=== PATIENT | male | born 1975 | race Caucasian/White ===

== ENCOUNTER → 2016-12-30 | Outpatient (REF) | payer MEDICAID, OTHER ==
[~2016-12-30] MED LIST: AMLO10TA PO; CIPR500T89 PO; LOSA100T37 PO; NORCOTAB PO; SPIR25TA2 PO
== END ==
LOC: M LAB REF 13:06
PROVIDERS: ATTEND Physician Assistant
DX: R50.9 Fever, unspecified (principal)

== ENCOUNTER 2017-02-20 22:26 | Emergency (ER) | payer MEDICAID, OTHER ==
[~2017-02-20] VITALS: Ht 185.4 cm; Wt 127.9 kg
[2017-02-20 22:41] VITALS: BP 155/91
[2017-02-20] MEDS ORDERED: BENAZEPRIL-HCTZ PO (22:45)
--- NOTE | 2017-02-21 08:13 | REP ---
Left knee five views : There is no fracture or dislocation. Mineralization and joint spaces are normal. There are no calcifications or foreign bodies. Impression: Negative left knee . Signed by Ayad Flores MD 02/21/2017 08:04 A
== END 2017-02-20 23:25 | disposition home or self-care (01) ==
LOC: M ED 23:20
DX: S83.92XA Sprain of unspecified site of left knee, initial encounter (principal); X50.9XXA Other and unspecified overexertion or strenuous movements or postures, initial encounter; Y92.019 Unspecified place in single-family (private) house as the place of occurrence of the external cause; Y93.89 Activity, other specified; Y99.8 Other external cause status; E66.9 Obesity, unspecified; Z79.899 Other long term (current) drug therapy; Z88.1 Allergy status to other antibiotic agents; F17.210 Nicotine dependence, cigarettes, uncomplicated

== ENCOUNTER 2017-08-06 13:40 | Emergency (ER) | payer MEDICAID, OTHER ==
[~2017-08-06] VITALS: Ht 185.4 cm; Wt 134.1 kg
[~2017-08-06 13:40] MED LIST changes: +BENAZEPRIL-HCTZ PO; +CIPR-249 PO; -CIPR500T89 PO; -LOSA100T37 PO; +LOSA100T5 PO
[2017-08-06] MEDS ORDERED: BENA20TA7 PO (14:07)
[2017-08-06 16:26] LABS: BASO # 0.1 K/mm3 (0.0-0.2); EOS # 0.2 K/mm3 (0.0-0.50); EOS % 2.2 % (0.0-3.0); LARGE UNSTAINED CELL # 0.2 K/mm3 (0.0-0.4); LARGE UNSTAINED CELL % 2.3 % (0.0-4.0); LYMPH # 3.2 K/mm3 (1.5-4.5); LYMPH % 28.6 % (24.0-44.0); MEAN CORPUSCULAR HEMOGLOBIN 29.9 pg (27.0-33.0); MEAN CORPUSCULAR HGB CONC 34.2 g/dl (32.0-36.5); MEAN CORPUSCULAR VOLUME 87.5 fl (80.0-96.0); MONO # 0.9 K/mm3 (0.0-0.8); MONO % 8.8 % (0.0-5.0); NEUTROPHILS # 5.8 K/mm3 (1.8-7.7); PLATELET COUNT, AUTOMATED 332 k/mm3 (150-450); RED CELL DISTRIBUTION WIDTH 12.6 % (11.5-14.5); WHITE BLOOD COUNT 10.2 K/mm3 (4.0-10.0)
[2017-08-06 16:56] LABS: ALBUMIN 4.3 GM/DL (3.2-5.2); ALBUMIN/GLOBULIN RATIO 1.05 (1.00-1.93); ALKALINE PHOSPHATASE 87 U/L (45-117); ALT/SGPT 54 U/L (12-78); ANION GAP 9 MEQ/L (8-16); AST/SGOT 27 U/L (15-37); BILIRUBIN,TOTAL 0.7 MG/DL (0.2-1.0); BLOOD UREA NITROGEN 11 MG/DL (7-18); CARBON DIOXIDE LEVEL 26 MEQ/L (21-32); CHLORIDE LEVEL 106 MEQ/L (98-107); CREATININE FOR GFR 0.83 MG/DL (0.70-1.30); GLOMERULAR FILTRATION RATE > 60.0 (>60); GLUCOSE, FASTING 85 MG/DL (70-105); POTASSIUM SERUM 3.9 MEQ/L (3.5-5.1); SODIUM LEVEL 141 MEQ/L (136-145); TOTAL PROTEIN 8.4 GM/DL (6.4-8.2)
[2017-08-06] MEDS ORDERED: ZOFR4TAB3 PO (17:44)
[2017-08-06] MEDS ORDERED: MOBI4TAB PO (17:44)
[2017-08-06 17:55] VITALS: BP 168/110
--- NOTE | 2017-08-07 06:09 | REP ---
CT ABDOMEN AND PELVIS WITHOUT ORAL OR IV CONTRAST: CT abdomen and pelvis performed without IV contrast. Sagittal and coronal reconstruction images are performed. The visualized lung bases are clear. The liver, spleen, adrenals, pancreas and kidneys are grossly unremarkable. There is no renal or ureteral calculus and no hydroureteronephrosis. There is no abdominal aortic aneurysm with mild scattered atherosclerotic calcification. There is no adenopathy. There is no free air or free fluid. There is no bowel wall thickening. No pelvic mass is seen. Urinary bladder is grossly unremarkable. IMPRESSION: Negative noncontrast CT abdomen and pelvis. Signed by Ayad Gilman MD 08/07/2017 09:41 A
== END 2017-08-06 17:58 | disposition home or self-care (01) ==
LOC: M ED 13:40
DX: R10.9 Unspecified abdominal pain (principal); I10 Essential (primary) hypertension; F17.200 Nicotine dependence, unspecified, uncomplicated; Z79.899 Other long term (current) drug therapy; Z88.1 Allergy status to other antibiotic agents

== ENCOUNTER → 2017-11-29 | Outpatient (CLI) | payer OTHER | LOC: M ADAMS 18:29 | DX: M25.562 Pain in left knee (principal) | CPT/HCPCS: 73564 ==

== ENCOUNTER 2018-01-10 11:04 | Emergency (ER) | payer OTHER ==
[2018-01-10 13:54] LABS: KETONE, URINE AUTO RFX NEGATIVE (NEGATIVE); LEUKOCYTE ESTERASE UR AUTO RFX NEGATIVE (NEGATIVE); MUCUS, URINE RFX SMALL (NEGATIVE); NITRITE, URINE AUTO RFX NEGATIVE (NEGATIVE); RBC, URINE AUTO RFX 1 /HPF (0-3); SPECIFIC GRAVITY UR AUTO RFX 1.013 (1.002-1.035); SQUAM EPITHELIAL CELL UR AURFX 1 /HPF (0-6); WBC, URINE AUTO RFX 0 /HPF (0-3)
[2018-01-10 14:17] LABS: INFLUENZA A AMPLIFICATION NEGATIVE (NEGATIVE); INFLUENZA B AMPLIFICATION NEGATIVE (NEGATIVE)
[2018-01-14 08:42] LABS: BEDSIDE GLUCOSE 131 MG/DL (70-105)
== END 2018-01-10 14:47 | disposition home or self-care (01) ==
LOC: M ED 11:04
DX: B34.9 Viral infection, unspecified (principal); R53.83 Other fatigue; I10 Essential (primary) hypertension; E66.9 Obesity, unspecified; F17.200 Nicotine dependence, unspecified, uncomplicated; Z79.899 Other long term (current) drug therapy; Z88.8 Allergy status to other drugs, medicaments and biological substances
CPT/HCPCS: 71046

== ENCOUNTER 2018-02-05 23:32 | Emergency (ER) | payer OTHER ==
[2018-02-06] MEDS ORDERED: INDOMETHACIN 25 MG CAP PO (01:30)
== END 2018-02-06 01:45 | disposition home or self-care (01) ==
LOC: M ED 23:32
DX: M65.272 Calcific tendinitis, left ankle and foot (principal); F17.200 Nicotine dependence, unspecified, uncomplicated; I10 Essential (primary) hypertension; Z79.899 Other long term (current) drug therapy; Z88.8 Allergy status to other drugs, medicaments and biological substances
CPT/HCPCS: 73610

== ENCOUNTER → 2018-03-31 | Outpatient (REF) | payer OTHER ==
[2018-04-01 11:37] LABS: ALBUMIN/GLOBULIN RATIO 0.98 (1.00-1.93); ALKALINE PHOSPHATASE 83 U/L (45-117); ALT/SGPT 42 U/L (12-78); ANION GAP 8 MEQ/L (8-16); AST/SGOT 25 U/L (7-37); BILIRUBIN,TOTAL 0.6 MG/DL (0.2-1.0); BLOOD UREA NITROGEN 11 MG/DL (7-18); CALCIUM LEVEL 8.9 MG/DL (8.5-10.1); CARBON DIOXIDE LEVEL 25 MEQ/L (21-32); CHLORIDE LEVEL 107 MEQ/L (98-107); CHOLESTEROL LEVEL 240 MG/DL (<200); CHOLESTEROL RISK RATIO 7.272 (<5); CREATININE FOR GFR 0.95 MG/DL (0.70-1.30); GLOMERULAR FILTRATION RATE > 60.0 (>60); GLUCOSE, FASTING 105 MG/DL (70-100); HDL CHOLESTEROL 33 MG/DL (>40); NON-HDL-C 207 MG/DL; POTASSIUM SERUM 4.1 MEQ/L (3.5-5.1); SODIUM LEVEL 140 MEQ/L (136-145); TOTAL PROTEIN 8.1 GM/DL (6.4-8.2); TRIGLYCERIDES LEVEL 692 MG/DL (<150)
== END ==
LOC: M SFHCCLAY 14:49
DX: I10 Essential (primary) hypertension (principal); E78.2 Mixed hyperlipidemia

== ENCOUNTER 2018-05-07 21:22 | Emergency (ER) | payer OTHER | END 2018-05-07 22:43 | disposition home or self-care (01) | LOC: M ED 21:22 | DX: S63.501A Unspecified sprain of right wrist, initial encounter (principal); X58.XXXA Exposure to other specified factors, initial encounter; Y92.89 Other specified places as the place of occurrence of the external cause; I10 Essential (primary) hypertension; Z88.1 Allergy status to other antibiotic agents; Z79.899 Other long term (current) drug therapy | CPT/HCPCS: 73110 ==

== ENCOUNTER → 2018-08-28 | Outpatient (REF) | payer OTHER ==
[2018-08-28 16:45] LABS: BASO # 0.1 10^3/uL (0.0-0.2); BASO % 0.9 % (0.0-1.0); EOS # 0.3 10^3/uL (0.0-0.50); EOS % 2.9 % (0.0-3.0); HEMATOCRIT 47.4 % (42.0-52.0); HEMOGLOBIN 16.1 g/dl (13.5-17.5); IMMATURE GRANULOCYTE % 0.3 % (0-3.0); LYMPH # 3.1 10^3/uL (1.5-4.5); LYMPH % 34.2 % (24.0-44.0); MEAN CORPUSCULAR VOLUME 88.3 fl (80.0-96.0); MONO # 1.1 10^3/uL (0.0-0.8); NEUTROPHILS # 4.5 10^3/uL (1.8-7.7); NEUTROPHILS % 49.7 % (36.0-66.0); PLATELET COUNT, AUTOMATED 335 10^3/uL (150-450); RED BLOOD COUNT 5.37 10^6/uL (4.30-6.10); RED CELL DISTRIBUTION WIDTH 12.4 % (11.5-14.5); WHITE BLOOD COUNT 9.1 10^3/uL (4.0-10.0)
[2018-08-28 17:03] LABS: ALBUMIN 4.4 GM/DL (3.2-5.2); ALBUMIN/GLOBULIN RATIO 1.33 (1.00-1.93); ALKALINE PHOSPHATASE 69 U/L (45-117); ALT/SGPT 40 U/L (12-78); ANION GAP 9 MEQ/L (8-16); AST/SGOT 29 U/L (7-37); BILIRUBIN,TOTAL 0.6 MG/DL (0.2-1.0); BLOOD UREA NITROGEN 13 MG/DL (7-18); CALCIUM LEVEL 9.8 MG/DL (8.5-10.1); CARBON DIOXIDE LEVEL 27 MEQ/L (21-32); CHLORIDE LEVEL 106 MEQ/L (98-107); CHOLESTEROL LEVEL 141 MG/DL (<200); CHOLESTEROL RISK RATIO 2.711 (<5); CREATININE FOR GFR 0.95 MG/DL (0.70-1.30); GLOMERULAR FILTRATION RATE > 60.0 (>60); GLUCOSE, FASTING 78 MG/DL (70-100); HDL CHOLESTEROL 52 MG/DL (>40); LDL CHOLESTEROL 69 MG/DL (<100); NON-HDL-C 89 MG/DL; POTASSIUM SERUM 4.2 MEQ/L (3.5-5.1); SODIUM LEVEL 142 MEQ/L (136-145); TOTAL PROTEIN 7.7 GM/DL (6.4-8.2); TRIGLYCERIDES LEVEL 98 MG/DL (<150)
== END ==
LOC: M SFHCCLAY 10:47
DX: I10 Essential (primary) hypertension (principal); E78.2 Mixed hyperlipidemia
CPT/HCPCS: 80053

== ENCOUNTER 2019-03-09 11:44 | Emergency (ER) | payer OTHER ==
[~2019-03-09] VITALS: Ht 188 cm; Wt 129.6 kg
[~2019-03-09 11:44] MED LIST changes: +BENA10TA6 PO; +BENA20TA7 PO; +HYDR-3715 PO; +INDO50CA11 PO; +MOBI15TA PO; +MOBI4TAB PO; -NORCOTAB PO; +SPIR-10 PO; -SPIR25TA2 PO; +ZOFR4TAB14 PO
[2019-03-09] MEDS ORDERED: AMLO10TA5 (11:56)
[2019-03-09] MEDS ORDERED: ATOR40TA75 (11:56)
[2019-03-09 13:20] LABS: BASO # 0.1 10^3/uL (0.0-0.2); BASO % 0.9 % (0.0-1.0); EOS # 0.2 10^3/uL (0.0-0.50); EOS % 2.1 % (0.0-3.0); HEMATOCRIT 51.2 % (42.0-52.0); HEMOGLOBIN 17.7 g/dl (13.5-17.5); LYMPH # 2.5 10^3/uL (1.5-4.5); LYMPH % 25.9 % (24.0-44.0); MEAN CORPUSCULAR HEMOGLOBIN 30.5 pg (27.0-33.0); MEAN CORPUSCULAR HGB CONC 34.6 g/dl (32.0-36.5); MEAN CORPUSCULAR VOLUME 88.3 fl (80.0-96.0); MONO # 0.9 10^3/uL (0.0-0.8); MONO % 9.8 % (0.0-5.0); NEUTROPHILS # 5.9 10^3/uL (1.8-7.7); PLATELET COUNT, AUTOMATED 322 10^3/uL (150-450); WHITE BLOOD COUNT 9.6 10^3/uL (4.0-10.0)
[2019-03-09 13:51] LABS: BLOOD UREA NITROGEN 9 MG/DL (7-18); C REACTIVE PROTEIN QUANTITATIV < 0.30 MG/DL (0.00-0.30); CALCIUM LEVEL 9.5 MG/DL (8.5-10.1); CARBON DIOXIDE LEVEL 25 MEQ/L (21-32); CHLORIDE LEVEL 104 MEQ/L (98-107); CREATININE FOR GFR 0.88 MG/DL (0.70-1.30); GLOMERULAR FILTRATION RATE > 60.0 (>60); GLUCOSE, FASTING 93 MG/DL (70-100); POTASSIUM SERUM 3.8 MEQ/L (3.5-5.1); SODIUM LEVEL 137 MEQ/L (136-145); URIC ACID 3.7 MG/DL (3.5-7.2)
--- NOTE | 2019-03-09 14:02 | REP ---
Left upper extremity duplex Doppler venous ultrasound. Real time compression and duplex Doppler evaluation of the left upper extremity deep venous system is performed. The left subclavian, jugular, axillary, brachial, basilic and cephalic veins are fully compressible where accessible with transducer pressure, and demonstrate no intraluminal thrombus and normal venous waveforms. There is no evidence of deep venous thrombosis. Impression: No evidence of deep venous thrombosis of the left upper extremity deep vein system. Electronically Signed by Ayad Gilman MD 03/09/2019 01:53 P
[2019-03-09] MEDS ORDERED: NAPR-837 PO (14:55)
[2019-03-09 15:02] VITALS: BP 141/88
[2019-03-09 21:50] LABS: ERYTHROCYTE SEDIMENTATION RATE 1 mm/hr (0-15)
== END 2019-03-09 15:03 | disposition home or self-care (01) ==
LOC: M ED 11:44
DX: M79.89 Other specified soft tissue disorders (principal); J45.909 Unspecified asthma, uncomplicated; F17.200 Nicotine dependence, unspecified, uncomplicated; Z88.1 Allergy status to other antibiotic agents; Z79.899 Other long term (current) drug therapy

== ENCOUNTER 2019-03-30 10:40 | Emergency (ER) | payer OTHER ==
[~2019-03-30] VITALS: Ht 188 cm; Wt 127.3 kg
[~2019-03-30 10:40] MED LIST changes: +AMLO10TA5; +ATOR40TA75; +NAPR-837 PO
[2019-03-30] MEDS ORDERED: ASPIRIN 81 MG CHEW TABLET PO ONE (11:00)
[2019-03-30 11:05] LABS: BASO # 0.1 10^3/uL (0.0-0.2); BASO % 0.8 % (0.0-1.0); EOS # 0.2 10^3/uL (0.0-0.50); HEMATOCRIT 49.6 % (42.0-52.0); HEMOGLOBIN 16.9 g/dl (13.5-17.5); MEAN CORPUSCULAR HEMOGLOBIN 30.5 pg (27.0-33.0); MEAN CORPUSCULAR HGB CONC 34.1 g/dl (32.0-36.5); MEAN CORPUSCULAR VOLUME 89.4 fl (80.0-96.0); MONO % 9.6 % (0.0-5.0); NEUTROPHILS % 58.2 % (36.0-66.0); PLATELET COUNT, AUTOMATED 327 10^3/uL (150-450); RED BLOOD COUNT 5.55 10^6/uL (4.30-6.10); WHITE BLOOD COUNT 10.4 10^3/uL (4.0-10.0)
[2019-03-30 11:29] LABS: BLOOD UREA NITROGEN 10 MG/DL (7-18); CALCIUM LEVEL 9.6 MG/DL (8.5-10.1); CARBON DIOXIDE LEVEL 29 MEQ/L (21-32); CHLORIDE LEVEL 104 MEQ/L (98-107); CPK CREATINE PHOSPHOKINASE 477 U/L (39-308); CREATININE FOR GFR 1.01 MG/DL (0.70-1.30); GLOMERULAR FILTRATION RATE > 60.0 (>60); GLUCOSE, FASTING 89 MG/DL (70-100); MB/CK RELATIVE INDEX 0.78 (< OR =4); POTASSIUM SERUM 3.9 MEQ/L (3.5-5.1); SODIUM LEVEL 139 MEQ/L (136-145); TROPONIN I < 0.02 NG/ML (< 0.10)
--- NOTE | 2019-03-30 12:10 | REP ---
Portable chest x-ray: Single view. History: Chest pain. Comparison study: January 10, 2018. Findings: EKG monitoring electrodes overlie the chest. The lungs are well inflated and clear. The heart is not enlarged. Pulmonary vasculature is not increased. No significant bony abnormality is seen. Impression: Negative portable chest x-ray. Electronically Signed by Lázaro Talavera MD 03/30/2019 07:18 P
--- NOTE | 2019-03-30 12:15 | ECGEPIP ---
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
[2019-03-30] MEDS ORDERED: ISOVUE-370 76% 100ML VIAL (Q9967) As Ordered ONE (12:24)
--- NOTE | 2019-03-30 13:27 | REP ---
CT pulmonary angiogram: With IV contrast. History: Rule out pulmonary embolus. Comparison studies: Comparison is made with today's chest x-ray. Contrast dose: 75 mL of Isovue [address] technique: Helical scanning is acquired and overlapping 1.5 mm and contiguous 3 mm axial images are reformatted. In addition, maximum intensity projection and multiplanar re-formation images are generated in sagittal and coronal imaging projections. CT pulmonary angiographic findings: There is good opacification in the pulmonary arterial tree. There is no CT evidence of pulmonary embolism. The thoracic aorta is well opacified as well. It is normal in course and caliber. No adrenal lesion is seen. No pleural or pericardial effusion is observed. There is a tiny air cyst or bolus in the left lower lobe. No pulmonary nodule or mass lesion is seen. There is a linear zone of subsegmental discoid atelectasis in the right lower lobe. No definite infiltrate is seen. Impression: No CT evidence of pulmonary embolus. Subsegmental discoid atelectasis right lower lobe. Otherwise no acute abnormality seen. Electronically Signed by Lázaro Talavera MD 03/30/2019 07:30 P
[2019-03-30 15:37] LABS: CPK CREATINE PHOSPHOKINASE 392 U/L (39-308); MB/CK RELATIVE INDEX 0.82 (< OR =4); TROPONIN I < 0.02 NG/ML (< 0.10)
--- NOTE | 2019-03-30 15:42 | ECGEPIP ---
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
[2019-03-30 15:46] VITALS: BP 99/53
== END 2019-03-30 16:03 | disposition home or self-care (01) ==
LOC: M ED 10:40
DX: R07.89 Other chest pain (principal)
CPT/HCPCS: 71045; 71275; 80048; 82550; 82553; 85025; 85379; 93005; 93041; 94760; 99285; Q9967

== ENCOUNTER 2019-06-16 14:30 | Outpatient (RCR) | payer OTHER ==
[~2019-06-16 14:30] MED LIST changes: -BENA10TA6 PO; +BENA10TA9 PO
== END 2019-06-17 ==
LOC: M PT 14:30
PROVIDERS: ATTEND Orthopaedic Surgery
DX: Z51.89 Encounter for other specified aftercare (principal); M25.561 Pain in right knee; M25.562 Pain in left knee

== ENCOUNTER 2019-07-02 13:45 | Outpatient (RCR) | payer OTHER ==
[~2019-07-02 13:45] MED LIST changes: -INDO50CA11 PO; +INDO50CA91 PO
== END 2019-07-18 ==
LOC: M PT 13:45
PROVIDERS: ATTEND Orthopaedic Surgery
DX: Z47.89 Encounter for other orthopedic aftercare (principal); M25.561 Pain in right knee; M25.562 Pain in left knee

== ENCOUNTER → 2019-09-07 | Outpatient (REF) | payer MEDICAID, OTHER ==
[2019-09-07 17:14] LABS: ALBUMIN 4.2 GM/DL (3.2-5.2); ALT/SGPT 41 U/L (12-78); BLOOD UREA NITROGEN 14 MG/DL (7-18); C REACTIVE PROTEIN QUANTITATIV < 0.30 MG/DL (0.00-0.30); CALCIUM LEVEL 9.6 MG/DL (8.5-10.1); CARBON DIOXIDE LEVEL 27 MEQ/L (21-32); CHLORIDE LEVEL 106 MEQ/L (98-107); CHOLESTEROL LEVEL 139 MG/DL (<200); CHOLESTEROL RISK RATIO 3.021 (<5); CREATININE FOR GFR 0.98 MG/DL (0.70-1.30); GLOMERULAR FILTRATION RATE > 60.0 (>60); GLUCOSE, FASTING 92 MG/DL (70-100); HDL CHOLESTEROL 46 MG/DL (>40); LDL CHOLESTEROL 37 MG/DL (<100); NON-HDL-C 93 MG/DL; POTASSIUM SERUM 3.9 MEQ/L (3.5-5.1); RHEUMATOID FACTOR QUANT < 10.0 IU/ML (<15.0); SODIUM LEVEL 139 MEQ/L (136-145); TOTAL PROTEIN 8.1 GM/DL (6.4-8.2); TRIGLYCERIDES LEVEL 278 MG/DL (<150)
[2019-09-07 17:25] LABS: BASO # 0.1 10^3/uL (0.0-0.2); BASO % 1.3 % (0.0-1.0); EOS # 0.2 10^3/uL (0.0-0.5); EOS % 2.4 % (0.0-3.0); HEMATOCRIT 49.5 % (42.0-52.0); HEMOGLOBIN 16.9 g/dl (13.5-17.5); LYMPH # 2.7 10^3/uL (1.5-5.0); LYMPH % 31.1 % (24.0-44.0); MEAN CORPUSCULAR HEMOGLOBIN 30.7 pg (27.0-33.0); MEAN CORPUSCULAR HGB CONC 34.1 g/dl (32.0-36.5); MEAN CORPUSCULAR VOLUME 89.8 fl (80.0-96.0); MONO # 0.9 10^3/uL (0.0-0.8); NEUTROPHILS # 4.7 10^3/uL (1.5-8.5); NEUTROPHILS % 54.9 % (36.0-66.0); PLATELET COUNT, AUTOMATED 337 10^3/uL (150-450); RED BLOOD COUNT 5.51 10^6/uL (4.30-6.10); WHITE BLOOD COUNT 8.6 10^3/uL (4.0-10.0)
[2019-09-07 18:31] LABS: ERYTHROCYTE SEDIMENTATION RATE 3 mm/hr (0-15)
[2019-09-10 00:16] LABS: ANA (HEP2) Positive (.); CYCLIC CITRULLINATED PEPTIDE 7 units (0-19)
== END ==
LOC: M SFHCCLAY 11:12
PROVIDERS: ATTEND Family Medicine
DX: I10 Essential (primary) hypertension (principal); E78.2 Mixed hyperlipidemia; M25.50 Pain in unspecified joint

== ENCOUNTER 2020-01-14 10:36 | Emergency (ER) | payer MEDICAID, OTHER ==
[~2020-01-14] VITALS: Ht 188 cm; Wt 133.5 kg
[2020-01-14 10:36] VITALS: BP 158/94
[~2020-01-14 10:36] MED LIST changes: -BENA10TA9 PO; +BENA1TAB24 PO
[2020-01-14] MEDS ORDERED: IBUP-1022 PO (10:52)
[2020-01-14] MEDS ORDERED: IBUPROFEN 600 MG TAB PO ONE (11:00)
== END 2020-01-14 11:01 | disposition home or self-care (01) ==
LOC: M ED 10:36
DX: S86.112A Strain of other muscle(s) and tendon(s) of posterior muscle group at lower leg level, left leg, initial encounter (principal); X50.0XXA Overexertion from strenuous movement or load, initial encounter; Y93.01 Activity, walking, marching and hiking; I10 Essential (primary) hypertension; E78.5 Hyperlipidemia, unspecified; F17.210 Nicotine dependence, cigarettes, uncomplicated; Z88.1 Allergy status to other antibiotic agents; Z79.899 Other long term (current) drug therapy

== ENCOUNTER → 2020-03-07 | Outpatient (REF) | payer OTHER ==
[~2020-03-07] MED LIST changes: +IBUP-1022 PO
== END ==
LOC: M LAB REF 12:23
PROVIDERS: ATTEND Physician Assistant Medical
DX: J02.0 Streptococcal pharyngitis (principal)

== ENCOUNTER 2020-03-16 10:25 | Emergency (ER) | payer OTHER ==
[~2020-03-16] VITALS: Ht 188 cm; Wt 133.9 kg
[2020-03-16 10:26] VITALS: BP 170/93
[2020-03-16 11:13] LABS: BASO # 0.1 10^3/uL (0.0-0.2); BASO % 0.9 % (0.0-1.0); EOS # 0.2 10^3/uL (0.0-0.5); EOS % 1.9 % (0.0-3.0); HEMATOCRIT 49.5 % (42.0-52.0); HEMOGLOBIN 16.7 g/dl (13.5-17.5); LYMPH % 28.5 % (24.0-44.0); MEAN CORPUSCULAR HEMOGLOBIN 29.6 pg (27.0-33.0); MEAN CORPUSCULAR HGB CONC 33.7 g/dl (32.0-36.5); MEAN CORPUSCULAR VOLUME 87.6 fl (80.0-96.0); MONO # 1.1 10^3/uL (0.0-0.8); MONO % 10.6 % (0.0-5.0); NEUTROPHILS # 6.1 10^3/uL (1.5-8.5); NEUTROPHILS % 57.8 % (36.0-66.0); PLATELET COUNT, AUTOMATED 313 10^3/uL (150-450); RED BLOOD COUNT 5.65 10^6/uL (4.30-6.10); WHITE BLOOD COUNT 10.5 10^3/uL (4.0-10.0)
[2020-03-16 11:39] LABS: ALBUMIN 4.2 GM/DL (3.2-5.2); ALT/SGPT 49 U/L (12-78); BLOOD UREA NITROGEN 12 MG/DL (7-18); CALCIUM LEVEL 9.5 MG/DL (8.5-10.1); CARBON DIOXIDE LEVEL 27 MEQ/L (21-32); CHLORIDE LEVEL 105 MEQ/L (98-107); CREATININE FOR GFR 0.99 MG/DL (0.70-1.30); GLOMERULAR FILTRATION RATE > 60.0 (>60); GLUCOSE, FASTING 91 MG/DL (70-100); POTASSIUM SERUM 3.8 MEQ/L (3.5-5.1); SODIUM LEVEL 138 MEQ/L (136-145); TOTAL PROTEIN 8.1 GM/DL (6.4-8.2)
[2020-03-16 11:49] LABS: HEPATITIS B SURFACE ANTIBODY NEGATIVE (POSITIVE)
[2020-03-16 11:59] LABS: HEPATITIS B SURFACE ANTIGEN NEGATIVE (NEGATIVE)
[2020-03-16 12:27] LABS: HEPATITIS C VIRUS ABY INDEX 0.1 INDEX (<0.8)
[2020-03-16 12:28] LABS: HIV SCREEN CENTAUR EXPOSED NEGATIVE (NEGATIVE)
== END 2020-03-16 11:09 | disposition home or self-care (01) ==
LOC: M ED 10:25
DX: Z77.21 Contact with and (suspected) exposure to potentially hazardous body fluids (principal); S61.210A Laceration without foreign body of right index finger without damage to nail, initial encounter; W27.2XXA Contact with scissors, initial encounter; Y92.238 Other place in hospital as the place of occurrence of the external cause; Y93.89 Activity, other specified; Y99.0 Civilian activity done for income or pay; I10 Essential (primary) hypertension; Z88.1 Allergy status to other antibiotic agents; Z79.899 Other long term (current) drug therapy

== ENCOUNTER 2020-04-01 14:09 | Emergency (ER) | payer OTHER ==
[~2020-04-01] VITALS: Ht 188 cm; Wt 133.6 kg
[2020-04-01] MEDS ORDERED: CLONI1TA PO (14:14)
[2020-04-01 15:03] LABS: HEMATOCRIT 44.4 % (42.0-52.0); HEMOGLOBIN 15.2 g/dl (13.5-17.5); MEAN CORPUSCULAR HEMOGLOBIN 30.1 pg (27.0-33.0); MEAN CORPUSCULAR HGB CONC 34.2 g/dl (32.0-36.5); MEAN CORPUSCULAR VOLUME 87.9 fl (80.0-96.0); PLATELET COUNT, AUTOMATED 294 10^3/uL (150-450); RED BLOOD COUNT 5.05 10^6/uL (4.30-6.10); WHITE BLOOD COUNT 9.4 10^3/uL (4.0-10.0)
[2020-04-01 15:46] LABS: BLOOD UREA NITROGEN 15 MG/DL (7-18); CALCIUM LEVEL 8.9 MG/DL (8.5-10.1); CARBON DIOXIDE LEVEL 26 MEQ/L (21-32); CHLORIDE LEVEL 106 MEQ/L (98-107); CREATININE FOR GFR 0.88 MG/DL (0.70-1.30); FREE T4 1.18 NG/DL (0.76-1.46); GLOMERULAR FILTRATION RATE > 60.0 (>60); GLUCOSE, FASTING 132 MG/DL (70-100); POTASSIUM SERUM 3.3 MEQ/L (3.5-5.1); SODIUM LEVEL 140 MEQ/L (136-145)
[2020-04-01] MEDS ORDERED: POTASSIUM CHLORIDE 10 MEQ SR TABLET PO ONE (16:15)
[2020-04-01 16:43] VITALS: BP 139/82
--- NOTE | 2020-04-01 21:12 | ECGEPIP ---
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 Order Number: [id number] Reading MD: Bijan Tinajero Measurements Intervals [place] Rate: 60 P: 27 IN: 180 QRS: 12 QRSD: 104 T: 31 QT: 446 QTc: 447 Interpretive Statements SINUS RHYTHM Baseline artifact Similar to tracing done 03-30-19 Electronically Signed on 04-01-2020 21:12:38 EDT by Bijan Tinajero
== END 2020-04-01 16:44 | disposition home or self-care (01) ==
LOC: M ED 14:09
DX: R42 Dizziness and giddiness (principal); E87.5 Hyperkalemia; T46.5X5A Adverse effect of other antihypertensive drugs, initial encounter; X58.XXXA Exposure to other specified factors, initial encounter; Y92.89 Other specified places as the place of occurrence of the external cause; I10 Essential (primary) hypertension; E78.5 Hyperlipidemia, unspecified; Z79.899 Other long term (current) drug therapy; Z88.8 Allergy status to other drugs, medicaments and biological substances; F17.210 Nicotine dependence, cigarettes, uncomplicated

== ENCOUNTER → 2020-06-09 | Outpatient (CLI) | payer OTHER ==
[~2020-06-09] MED LIST changes: -AMLO10TA5; +AMLO1TAB25 PO; +CLONI1TA PO; +NAPR500T6 PO
== END ==
LOC: M LABSMTC 09:39
PROVIDERS: ATTEND Family Medicine
DX: Z11.59 Encounter for screening for other viral diseases (principal)
CPT/HCPCS: C9803; U0002

== ENCOUNTER 2020-08-09 08:26 | Emergency (ER) | payer OTHER ==
[~2020-08-09] VITALS: Ht 188 cm; Wt 135.4 kg
[~2020-08-09 08:26] MED LIST changes: -NAPR500T6 PO
[2020-08-09 09:24] LABS: BASO # 0.1 10^3/uL (0.0-0.2); BASO % 1.2 % (0.0-1.0); EOS # 0.2 10^3/uL (0.0-0.5); EOS % 2.3 % (0.0-3.0); HEMATOCRIT 48.3 % (42.0-52.0); HEMOGLOBIN 16.6 g/dl (13.5-17.5); LYMPH # 2.3 10^3/uL (1.5-5.0); LYMPH % 30.8 % (24.0-44.0); MEAN CORPUSCULAR HEMOGLOBIN 30.2 pg (27.0-33.0); MEAN CORPUSCULAR HGB CONC 34.4 g/dl (32.0-36.5); MEAN CORPUSCULAR VOLUME 87.8 fl (80.0-96.0); MONO # 0.9 10^3/uL (0.0-0.8); MONO % 11.6 % (0.0-5.0); NEUTROPHILS % 53.4 % (36.0-66.0); PLATELET COUNT, AUTOMATED 307 10^3/uL (150-450); WHITE BLOOD COUNT 7.4 10^3/uL (4.0-10.0)
--- NOTE | 2020-08-09 09:26 | REPVR ---
PROCEDURE INFORMATION: Exam: XR Chest, 1 View Exam date and time: 08/09/2020 9:19 AM Age: 44 years old Clinical indication: Chest pain; Type not specified TECHNIQUE: Imaging protocol: XR of the chest Views: 1 view. COMPARISON: MT PORTABLE CHEST X-RAY 03/30/2019 11:02 AM FINDINGS: Lungs: Stable coarse nonspecific bilateral predominantly perihilar reticulonodular opacities. Pleural space: Unremarkable. No pleural effusion. No pneumothorax. Heart/Mediastinum: Unremarkable. No cardiomegaly. Bones/joints: Unremarkable. IMPRESSION: No acute findings. Electronically signed by: Haris Sinclair On 08/09/2020 09:26:16 AM
[2020-08-09] MEDS ORDERED: ISOVUE-370 76% 100ML VIAL As Ordered ONE (09:36)
[2020-08-09 09:50] LABS: ALBUMIN 3.9 GM/DL (3.2-5.2); BILIRUBIN,DIRECT 0.2 MG/DL (0.0-0.2); BILIRUBIN,TOTAL 0.8 MG/DL (0.2-1.0); THYROID STIMULATING HORMONE 1.53 uIU/ML (0.358-3.740); TOTAL PROTEIN 7.6 GM/DL (6.4-8.2)
--- NOTE | 2020-08-09 10:25 | REPVR ---
PROCEDURE INFORMATION: Exam: CT Angiography Chest with Contrast Exam date and time: 08/09/20 (9:46am) Age: 44 years old Clinical indication: Pleuritic chest pain TECHNIQUE: Imaging protocol: Computed tomographic angiography of the chest with intravenous contrast. 3D rendering (Not supervised by radiologist): MIP and/or 3D reconstructed images were created by the technologist. Radiation optimization: All CT scans at this facility use at least one of these dose optimization techniques: automated exposure control; mA and/or kV adjustment per patient size (includes targeted exams where dose is matched to clinical indication); or iterative reconstruction. Contrast material: Isovue 370 Contrast volume: 75 ml Contrast route: IV COMPARISON: CTA CHEST of 03/30/19 FINDINGS: Pulmonary arteries: Normal. No pulmonary emboli. Aorta: Unremarkable. No aortic aneurysm. No aortic dissection. Lungs: Unremarkable. No consolidation. No masses. Pleural space: Unremarkable. No pneumothorax. No pleural effusions. Heart: Unremarkable. No cardiomegaly. No pericardial effusion. Lymph nodes: Unremarkable. No enlarged lymph nodes. Bones/joints: Unremarkable. No acute fracture. Soft tissues: Unremarkable. Upper abdomen: Right adrenal enlargement (1.8 cm size). The right adrenal measured approx. 1.1 cm size in March 2019. Probably a few faint gallstones and/or sludge, layering dependently in the gallbladder. IMPRESSION: No acute findings. No filling defects suspicious for pulmonary emboli are seen. There is no CT evidence of aortic dissection nor leakage. No aortic aneurysm is appreciated. Probably a few faint gallstones and/or sludge, layering dependently in the gallbladder. Perhaps enlarging right adrenal gland (currently measuring 1.8 cm size; measured approx. 1.1 cm size in March 2019). Comparison with other previous CT scans is suggested, when available (not available at this time). Further evaluation and/or interval follow-up may be warranted. An MRI scan can be considered for further evaluation, eg. Electronically signed by: Rebeca Lopez On 08/09/2020 10:24:57 AM
--- NOTE | 2020-08-09 10:57 | ED PDOC ---
Post-Departure Follow-Up dr montanez faxed formal report of cta chest for fu Neisha Hightower MD Aug 09, 2020 10:57
--- NOTE | 2020-08-09 12:54 | ECGEPIP ---
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
--- NOTE | 2020-08-09 13:01 | ECGEPIP ---
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
[2020-08-09 13:09] VITALS: BP 139/81
== END 2020-08-09 13:31 | disposition home or self-care (01) ==
LOC: M ED 08:26
DX: R07.9 Chest pain, unspecified (principal); I10 Essential (primary) hypertension; F17.200 Nicotine dependence, unspecified, uncomplicated; Z88.8 Allergy status to other drugs, medicaments and biological substances
CPT/HCPCS: 71045; 71275; 80047; 80076; 83690; 83880; 84443; 85025; 85379; 93005; 93041; 94760; 99285; Q9967

== ENCOUNTER → 2020-08-15 | Outpatient (CLI) | payer OTHER ==
[~2020-08-15] MED LIST changes: +NAPR500T6 PO
[2020-08-15 13:11] LABS: ALT/SGPT 37 U/L (12-78); BILIRUBIN,TOTAL 0.8 MG/DL (0.2-1.0); BLOOD UREA NITROGEN 12 MG/DL (7-18); CALCIUM LEVEL 9.3 MG/DL (8.5-10.1); CARBON DIOXIDE LEVEL 27 MEQ/L (21-32); CHLORIDE LEVEL 105 MEQ/L (98-107); CREATININE FOR GFR 0.88 MG/DL (0.70-1.30); GLOMERULAR FILTRATION RATE > 60.0 (>60); GLUCOSE, FASTING 82 MG/DL (70-100); POTASSIUM SERUM 3.7 MEQ/L (3.5-5.1); SODIUM LEVEL 139 MEQ/L (136-145); TOTAL PROTEIN 7.9 GM/DL (6.4-8.2)
== END ==
LOC: M LAB 10:28
PROVIDERS: ATTEND Family Medicine
DX: E22.9 Hyperfunction of pituitary gland, unspecified (principal); I10 Essential (primary) hypertension

== ENCOUNTER → 2020-08-21 | Outpatient (REF) | payer OTHER ==
[~2020-08-21] MED LIST changes: +AMLO1TAB25; -AMLO1TAB25 PO; -NAPR500T6 PO
[2020-08-25 10:08] LABS: METANEPHRINE TOTAL URINE 164 ug/L (Undefined); METANEPHRINE URINE 123 ug/24 hr (58-276); NORMETANEPHRINE TOTAL URINE 292 ug/L (Undefined); NORMETANEPHRINE URINE 219 ug/24 hr (156-729)
== END ==
LOC: M LAB 16:59
PROVIDERS: ATTEND Family Medicine
DX: E27.9 Disorder of adrenal gland, unspecified (principal)

== ENCOUNTER 2020-08-24 09:39 | Emergency (ER) | payer OTHER ==
[~2020-08-24] VITALS: Ht 188 cm; Wt 136.4 kg
[2020-08-24] MEDS ORDERED: NS 1,000 ML IV ONE (10:15)
[2020-08-24 10:40] LABS: BASO # 0.1 10^3/uL (0.0-0.2); EOS # 0.2 10^3/uL (0.0-0.5); EOS % 2.1 % (0.0-3.0); HEMATOCRIT 46.5 % (42.0-52.0); HEMOGLOBIN 15.9 g/dl (13.5-17.5); LYMPH # 2.5 10^3/uL (1.5-5.0); MEAN CORPUSCULAR HEMOGLOBIN 30.2 pg (27.0-33.0); MEAN CORPUSCULAR HGB CONC 34.2 g/dl (32.0-36.5); MEAN CORPUSCULAR VOLUME 88.2 fl (80.0-96.0); MONO % 12.2 % (0.0-5.0); NEUTROPHILS # 4.1 10^3/uL (1.5-8.5); NEUTROPHILS % 52.3 % (36.0-66.0); PLATELET COUNT, AUTOMATED 305 10^3/uL (150-450); RED BLOOD COUNT 5.27 10^6/uL (4.30-6.10); WHITE BLOOD COUNT 7.8 10^3/uL (4.0-10.0)
--- NOTE | 2020-08-24 10:59 | REPVR ---
PROCEDURE INFORMATION: Exam: CT Abdomen And Pelvis Without Contrast Exam date and time: 08/24/2020 10:23 AM Age: 44 years old Clinical indication: Abdominal pain; Localized; Right; Additional info: Right flank pain/rlq pain TECHNIQUE: Imaging protocol: Computed tomography of the abdomen and pelvis without contrast. Radiation optimization: All CT scans at this facility use at least one of these dose optimization techniques: automated exposure control; mA and/or kV adjustment per patient size (includes targeted exams where dose is matched to clinical indication); or iterative reconstruction. COMPARISON: CT ABD PELVIS W/O CONTRAST 08/06/2017 4:12 PM FINDINGS: Limitations: Lack of intravenous contrast material limits evaluation of the vascular and visceral structures. Liver: Normal. No mass. Gallbladder and bile ducts: Normal. No calcified stones. No ductal dilation. Pancreas: Normal. No ductal dilation. Spleen: Normal. No splenomegaly. Adrenals: Normal. No mass. Kidneys and ureters: Normal. No hydronephrosis. Stomach and bowel: Unremarkable. No obstruction. No mucosal thickening. Appendix: Suspected appendectomy. Intraperitoneal space: Unremarkable. No free air. No significant fluid collection. Vasculature: Mild atherosclerotic vascular calcifications. Lymph nodes: Unremarkable. No enlarged lymph nodes. Urinary bladder: Bladder is nondistended, somewhat limiting evaluation. Reproductive: Unremarkable as visualized. Bones/joints: Degenerative change of the spine. Mild bilateral hip joint DJD. Soft tissues: Tiny fat containing supraumbilical hernia. IMPRESSION: No acute abnormality is identified within the abdomen/pelvis. Electronically signed by: Dana Portillo On 08/24/2020 10:58:39 AM
[2020-08-24 11:04] LABS: ALBUMIN 3.8 GM/DL (3.2-5.2); ALT/SGPT 37 U/L (12-78); BILIRUBIN,DIRECT 0.2 MG/DL (0.0-0.2); BILIRUBIN,TOTAL 0.7 MG/DL (0.2-1.0); BLOOD UREA NITROGEN 10 MG/DL (7-18); CALCIUM LEVEL 9.3 MG/DL (8.5-10.1); CARBON DIOXIDE LEVEL 28 MEQ/L (21-32); CHLORIDE LEVEL 108 MEQ/L (98-107); CREATININE FOR GFR 0.91 MG/DL (0.70-1.30); GLOMERULAR FILTRATION RATE > 60.0 (>60); GLUCOSE, FASTING 90 MG/DL (70-100); LIPASE 129 U/L (73-393); SODIUM LEVEL 140 MEQ/L (136-145); TOTAL PROTEIN 7.5 GM/DL (6.4-8.2)
[2020-08-24] MEDS ORDERED: NAPR-837 PO (11:32)
[2020-08-24 11:40] VITALS: BP 170/98
== END 2020-08-24 11:42 | disposition home or self-care (01) ==
LOC: M ED 09:39
DX: R10.9 Unspecified abdominal pain (principal); F17.200 Nicotine dependence, unspecified, uncomplicated; Z88.1 Allergy status to other antibiotic agents; Z79.899 Other long term (current) drug therapy

== ENCOUNTER → 2020-09-12 | Outpatient (CLI) | payer SELFPAY ==
[~2020-09-12] MED LIST changes: -AMLO1TAB25; +AMLO1TAB25 PO; +NAPR500T6 PO
== END ==
LOC: M LABSMTC 12:31
PROVIDERS: ATTEND Pediatrics
DX: Z20.828 Contact with and (suspected) exposure to other viral communicable diseases (principal)

== ENCOUNTER 2020-09-20 08:41 | Emergency (ER) | payer OTHER ==
[~2020-09-20] VITALS: Ht 188 cm; Wt 134.1 kg
[~2020-09-20 08:41] MED LIST changes: -NAPR500T6 PO
[2020-09-20 09:56] LABS: HEMATOCRIT 50.4 % (42.0-52.0); HEMOGLOBIN 16.6 g/dl (13.5-17.5); MEAN CORPUSCULAR HEMOGLOBIN 29.7 pg (27.0-33.0); MEAN CORPUSCULAR HGB CONC 32.9 g/dl (32.0-36.5); MEAN CORPUSCULAR VOLUME 90.2 fl (80.0-96.0); PLATELET COUNT, AUTOMATED 344 10^3/uL (150-450); RED BLOOD COUNT 5.59 10^6/uL (4.30-6.10); WHITE BLOOD COUNT 11.3 10^3/uL (4.0-10.0)
[2020-09-20 10:22] LABS: AMPHETAMINES LEVEL URINE NEGATIVE (NEGATIVE); BARBITURATES URINE NEGATIVE (NEGATIVE); BENZODIAZEPINES URINE NEGATIVE (NEGATIVE); CANNABINOIDS URINE NEGATIVE (NEGATIVE); COCAINE METABOLITE URINE NEGATIVE (NEGATIVE); METHADONE URINE NEGATIVE (NEGATIVE); OPIATES URINE NEGATIVE (NEGATIVE); PHENCYCLIDINE URINE NEGATIVE (NEGATIVE)
[2020-09-20 10:40] LABS: ACETAMINOPHEN LEVEL < 2.0 UG/ML (10.0-30.0); ALBUMIN 4.2 GM/DL (3.2-5.2); ALT/SGPT 34 U/L (12-78); BILIRUBIN,DIRECT 0.2 MG/DL (0.0-0.2); BILIRUBIN,TOTAL 1.1 MG/DL (0.2-1.0); BLOOD UREA NITROGEN 12 MG/DL (7-18); CALCIUM LEVEL 9.4 MG/DL (8.5-10.1); CARBON DIOXIDE LEVEL 25 MEQ/L (21-32); CHLORIDE LEVEL 105 MEQ/L (98-107); CREATININE FOR GFR 1.01 MG/DL (0.70-1.30); ETHYL ALCOHOL (ETHANOL) 0.003 % (0.000-0.010); GLOMERULAR FILTRATION RATE > 60.0 (>60); GLUCOSE, FASTING 96 MG/DL (70-100); POTASSIUM SERUM 3.7 MEQ/L (3.5-5.1); SALICYLATE LEVEL 3.1 MG/DL (5.0-30.0); SODIUM LEVEL 137 MEQ/L (136-145); TOTAL PROTEIN 8.1 GM/DL (6.4-8.2)
[2020-09-20] MEDS ORDERED: NAPR500T6 PO (12:21)
[2020-09-20 12:48] VITALS: BP 158/88
== END 2020-09-20 12:49 | disposition home or self-care (01) ==
LOC: M ED 08:41
DX: F33.9 Major depressive disorder, recurrent, unspecified (principal); I10 Essential (primary) hypertension; E78.5 Hyperlipidemia, unspecified; F17.200 Nicotine dependence, unspecified, uncomplicated; Z88.8 Allergy status to other drugs, medicaments and biological substances
CPT/HCPCS: 36415; 80048; 80076; 80307; 84443; 85027; 99284; G0480

== ENCOUNTER → 2021-02-23 | Outpatient (REF) | payer OTHER ==
[~2021-02-23] MED LIST changes: +NAPR500T6 PO
== END ==
LOC: M SFHCCLAY 11:19
PROVIDERS: ATTEND Family Medicine
DX: E78.2 Mixed hyperlipidemia (principal); I10 Essential (primary) hypertension; Z53.9 Procedure and treatment not carried out, unspecified reason

== ENCOUNTER 2021-11-08 16:17 | Emergency (ER) | payer OTHER ==
[~2021-11-08] VITALS: Ht 188 cm; Wt 132.5 kg
[2021-11-08 16:17] VITALS: BP 159/94
[2021-11-08] MEDS ORDERED: ATOR40TA75 PO (16:41)
== END 2021-11-08 20:07 | disposition left against medical advice (07) ==
LOC: M ED 16:17
DX: Z53.21 Procedure and treatment not carried out due to patient leaving prior to being seen by health care provider (principal)

== ENCOUNTER → 2021-12-28 | Outpatient (REF) | payer OTHER ==
[~2021-12-28] MED LIST changes: +ATOR40TA75 PO
[2021-12-29 11:46] LABS: BASO # 0.1 10^3/uL (0.0-0.2); BASO % 1.4 % (0.0-1.0); EOS # 0.3 10^3/uL (0.0-0.5); EOS % 3.4 % (0.0-3.0); HEMATOCRIT 49.3 % (42.0-52.0); HEMOGLOBIN 16.3 g/dl (13.5-17.5); LYMPH # 3.4 10^3/uL (1.5-5.0); LYMPH % 36.1 % (24.0-44.0); MEAN CORPUSCULAR HEMOGLOBIN 29.2 pg (27.0-33.0); MEAN CORPUSCULAR HGB CONC 33.1 g/dl (32.0-36.5); MEAN CORPUSCULAR VOLUME 88.2 fl (80.0-96.0); MONO # 0.9 10^3/uL (0.0-0.8); MONO % 10.1 % (2.0-8.0); NEUTROPHILS # 4.5 10^3/uL (1.5-8.5); NEUTROPHILS % 48.1 % (36.0-66.0); PLATELET COUNT, AUTOMATED 343 10^3/uL (150-450); RED BLOOD COUNT 5.59 10^6/uL (4.30-6.10); WHITE BLOOD COUNT 9.3 10^3/uL (4.0-10.0)
[2021-12-29 12:20] LABS: ALBUMIN 4.1 GM/DL (3.2-5.2); ALT/SGPT 38 U/L (12-78); BILIRUBIN,TOTAL 0.5 MG/DL (0.2-1.0); BLOOD UREA NITROGEN 12 MG/DL (7-18); CALCIUM LEVEL 9.5 MG/DL (8.5-10.1); CARBON DIOXIDE LEVEL 29 MEQ/L (21-32); CHLORIDE LEVEL 102 MEQ/L (98-107); CHOLESTEROL LEVEL 231 MG/DL (<200); CHOLESTEROL RISK RATIO 5.634 (<5); CREATININE FOR GFR 1.06 MG/DL (0.70-1.30); GLOMERULAR FILTRATION RATE > 60.0 (>60); GLUCOSE, FASTING 84 MG/DL (70-100); HDL CHOLESTEROL 41 MG/DL (>40); LDL CHOLESTEROL 113 MG/DL (<100); NON-HDL-C 190 MG/DL; POTASSIUM SERUM 5.9 MEQ/L (3.5-5.1); SODIUM LEVEL 136 MEQ/L (136-145); TRIGLYCERIDES LEVEL 384 MG/DL (<150)
== END ==
LOC: M SFHCCLAY 14:56
PROVIDERS: ATTEND Family Medicine
DX: E78.2 Mixed hyperlipidemia (principal); I10 Essential (primary) hypertension

== ENCOUNTER → 2022-09-10 | Outpatient (CLI) | payer OTHER | LOC: M CLY 10:08 | PROVIDERS: ATTEND Family Medicine | DX: M25.552 Pain in left hip (principal) ==

== ENCOUNTER → 2023-01-02 | Outpatient (CLI) | payer OTHER | LOC: M RAD 08:18 | PROVIDERS: ATTEND Family Medicine | DX: I10 Essential (primary) hypertension (principal) ==

== ENCOUNTER → 2023-03-15 | Outpatient (REF) | payer OTHER ==
[2023-03-15 17:25] LABS: HEMATOCRIT 46.1 % (42.0-52.0); HEMOGLOBIN 15.5 g/dl (13.5-17.5); MEAN CORPUSCULAR HGB CONC 33.6 g/dl (32.0-36.5); MEAN CORPUSCULAR VOLUME 89.2 fl (80.0-96.0); PLATELET COUNT, AUTOMATED 344 10^3/uL (150-450); RED BLOOD COUNT 5.17 10^6/uL (4.30-6.10); WHITE BLOOD COUNT 9.3 10^3/uL (4.0-10.0)
[2023-03-15 17:50] LABS: ALKALINE PHOSPHATASE 69 U/L (46-116); ALT/SGPT 42 U/L (7.0-40); AST/SGOT 36 U/L (<34); BILIRUBIN,TOTAL 0.7 MG/DL (0.3-1.2); BLOOD UREA NITROGEN 17 MG/DL (9-23); CALCIUM LEVEL 9.2 MG/DL (8.5-10.1); CARBON DIOXIDE LEVEL 26 MMOL/L (20-31); CHLORIDE LEVEL 102 MMOL/L (98-107); CHOLESTEROL LEVEL 214 MG/DL (<200); CHOLESTEROL RISK RATIO 4.47 (<5); CREATININE FOR GFR 0.82 MG/DL (0.70-1.30); GLOMERULAR FILTRATION RATE > 60.0 (>60); GLUCOSE, FASTING 92 MG/DL (60-100); HDL CHOLESTEROL 47.8 MG/DL (>40); NON-HDL-C 166.2 MG/DL; SODIUM LEVEL 138 MMOL/L (136-145); TOTAL PROTEIN 7.6 G/DL (5.7-8.2); TRIGLYCERIDES LEVEL 321 MG/DL (<150)
== END ==
LOC: M SFHCCLAY 14:47
PROVIDERS: ATTEND Family Medicine
DX: I10 Essential (primary) hypertension (principal); E78.2 Mixed hyperlipidemia

== ENCOUNTER → 2023-07-05 | Outpatient (REF) | payer OTHER ==
[2023-07-05 18:09] LABS: ALBUMIN 4.1 G/DL (3.2-5.2); ALKALINE PHOSPHATASE 71 U/L (46-116); ALT/SGPT 37 U/L (7.0-40); AST/SGOT 22 U/L (<34); BILIRUBIN,TOTAL 0.7 MG/DL (0.3-1.2); BLOOD UREA NITROGEN 11 MG/DL (9-23); C REACTIVE PROTEIN QUANTITATIV < 0.40 MG/DL (<1.0); CALCIUM LEVEL 9.7 MG/DL (8.5-10.1); CARBON DIOXIDE LEVEL 26 MMOL/L (20-31); CHLORIDE LEVEL 103 MMOL/L (98-107); CREATININE FOR GFR 0.81 MG/DL (0.70-1.30); GLOMERULAR FILTRATION RATE > 60.0 (>60); GLUCOSE, FASTING 116 MG/DL (60-100); POTASSIUM SERUM 3.6 MMOL/L (3.5-5.1); SODIUM LEVEL 139 MMOL/L (136-145); TOTAL PROTEIN 7.6 G/DL (5.7-8.2)
[2023-07-05 18:10] LABS: RHEUMATOID FACTOR QUANT < 3.5 IU/ML (<14)
[2023-07-08 20:07] LABS: ANA (HEP2) Positive (.); CYCLIC CITRULLINATED PEPTIDE 4 units (0-19)
== END ==
LOC: M SFHCCLAY 14:46
PROVIDERS: ATTEND Family Medicine
DX: M25.532 Pain in left wrist (principal)

== ENCOUNTER → 2023-07-05 | Outpatient (CLI) | payer OTHER | LOC: M CLY 15:08 | PROVIDERS: ATTEND Family Medicine | DX: M25.532 Pain in left wrist (principal) ==

== ENCOUNTER 2023-07-11 13:01 | Emergency (ER) | payer OTHER ==
[~2023-07-11] VITALS: Ht 188 cm; Wt 129.0 kg
[2023-07-11 13:01] VITALS: TEMP 98.2; O2SAT 97
[2023-07-11] MEDS ORDERED: INDO50CA91 PO (15:10)
[2023-07-11 15:17] VITALS: BP 144/86
== END 2023-07-11 15:17 | disposition home or self-care (01) ==
LOC: M ED 13:01
DX: M65.4 Radial styloid tenosynovitis [de Quervain] (principal); I10 Essential (primary) hypertension; F17.200 Nicotine dependence, unspecified, uncomplicated; Z88.1 Allergy status to other antibiotic agents; Z79.02 Long term (current) use of antithrombotics/antiplatelets; Z79.899 Other long term (current) drug therapy

== ENCOUNTER 2023-09-27 06:50 | Day surgery (SDC) | payer OTHER ==
[~2023-09-27] VITALS: Ht 188 cm; Wt 128.4 kg
[~2023-09-27 06:50] MED LIST changes: +LIDOCAINE W/EPINEPHRINE 1% 20ML VIAL XX ONE; +SODIUM BICARBONATE 8.4% INJ 50MEQ 50ML VIAL XX ONE
[2023-09-27] MEDS ORDERED: BACITRACIN OINTMENT 30GM TUBE As Ordered ONE (09:09)
[2023-09-27 09:26] VITALS: BP 162/75; TEMP 97.6; O2SAT 98
== END 2023-09-27 09:34 | disposition home or self-care (01) ==
LOC: M SDC 06:50
PROVIDERS: ATTEND Orthopaedic Surgery Hand Surgery
DX: M65.4 Radial styloid tenosynovitis [de Quervain] (principal); I10 Essential (primary) hypertension; Z79.899 Other long term (current) drug therapy; F17.210 Nicotine dependence, cigarettes, uncomplicated

== ENCOUNTER → 2024-03-12 | Outpatient (REF) | payer OTHER ==
[~2024-03-12] MED LIST changes: -LIDOCAINE W/EPINEPHRINE 1% 20ML VIAL XX ONE; -SODIUM BICARBONATE 8.4% INJ 50MEQ 50ML VIAL XX ONE
[2024-03-12 18:00] LABS: BASO # 0.1 10^3/uL (0.0-0.2); EOS # 0.3 10^3/uL (0.0-0.5); EOS % 3.9 % (0.0-3.0); HEMATOCRIT 45.6 % (42.0-52.0); HEMOGLOBIN 15.3 g/dl (13.5-17.5); LYMPH # 2.7 10^3/uL (1.5-5.0); MEAN CORPUSCULAR HEMOGLOBIN 30.2 pg (27.0-33.0); MEAN CORPUSCULAR HGB CONC 33.6 g/dl (32.0-36.5); MEAN CORPUSCULAR VOLUME 90.1 fl (80.0-96.0); MONO # 0.9 10^3/uL (0.0-0.8); MONO % 10.6 % (2.0-8.0); NEUTROPHILS # 4.6 10^3/uL (1.5-8.5); NEUTROPHILS % 53.2 % (36.0-66.0); PLATELET COUNT, AUTOMATED 299 10^3/uL (150-450); RED BLOOD COUNT 5.06 10^6/uL (4.30-6.10); WHITE BLOOD COUNT 8.7 10^3/uL (4.0-10.0)
[2024-03-12 18:14] LABS: ERYTHROCYTE SEDIMENTATION RATE 13 mm/hr (0-15)
[2024-03-12 18:20] LABS: C REACTIVE PROTEIN QUANTITATIV < 0.40 MG/DL (<1.0); RHEUMATOID FACTOR QUANT < 3.5 IU/ML (<14)
[2024-03-12 18:21] LABS: ALKALINE PHOSPHATASE 76 U/L (46-116); ALT/SGPT 47 U/L (7.0-40); AST/SGOT 46 U/L (<34); BILIRUBIN,TOTAL 0.9 MG/DL (0.3-1.2); BLOOD UREA NITROGEN 22 MG/DL (9-23); CALCIUM LEVEL 9.3 MG/DL (8.5-10.1); CARBON DIOXIDE LEVEL 28 MMOL/L (20-31); CHLORIDE LEVEL 103 MMOL/L (98-107); CHOLESTEROL LEVEL 139 MG/DL (<200); CHOLESTEROL RISK RATIO 2.75 (<5); CREATININE FOR GFR 0.84 MG/DL (0.70-1.30); GLOMERULAR FILTRATION RATE > 60.0 (>60); GLUCOSE, FASTING 120 MG/DL (60-100); HDL CHOLESTEROL 50.4 MG/DL (>40); LDL CHOLESTEROL 60.8 MG/DL (<100); NON-HDL-C 88.6 MG/DL; POTASSIUM SERUM 3.8 MMOL/L (3.5-5.1); SODIUM LEVEL 139 MMOL/L (136-145); TOTAL PROTEIN 7.1 G/DL (5.7-8.2); TRIGLYCERIDES LEVEL 139 MG/DL (<150)
== END ==
LOC: M SFHCCLAY 13:35
PROVIDERS: ATTEND Family Medicine
DX: I10 Essential (primary) hypertension (principal); R76.8 Other specified abnormal immunological findings in serum; E78.2 Mixed hyperlipidemia

== ENCOUNTER 2024-04-30 14:56 | Emergency (ER) | payer OTHER ==
[~2024-04-30] VITALS: Ht 188 cm; Wt 133.3 kg
[2024-04-30] MEDS ORDERED: NAPR-837 PO (16:55)
[2024-04-30 17:07] VITALS: BP 145/78; TEMP 98.4; O2SAT 99
== END 2024-04-30 17:31 | disposition home or self-care (01) ==
LOC: M ED 14:56
DX: S82.831A Other fracture of upper and lower end of right fibula, initial encounter for closed fracture (principal); X50.0XXA Overexertion from strenuous movement or load, initial encounter; I10 Essential (primary) hypertension; E78.5 Hyperlipidemia, unspecified; Z88.1 Allergy status to other antibiotic agents; Z79.02 Long term (current) use of antithrombotics/antiplatelets; Z79.1 Long term (current) use of non-steroidal anti-inflammatories (NSAID); Z79.899 Other long term (current) drug therapy; Y92.009 Unspecified place in unspecified non-institutional (private) residence as the place of occurrence of the external cause; Y93.89 Activity, other specified; Y99.9 Unspecified external cause status

== ENCOUNTER → 2024-05-01 | Outpatient (CLI) | payer OTHER | LOC: M SOG 14:29 | PROVIDERS: ATTEND Physician Assistant | DX: Z53.9 Procedure and treatment not carried out, unspecified reason (principal) ==

== ENCOUNTER → 2024-05-18 | Outpatient (CLI) | payer OTHER | LOC: M SOG 08:12 | PROVIDERS: ATTEND Physician Assistant | DX: Z53.9 Procedure and treatment not carried out, unspecified reason (principal) ==

== ENCOUNTER → 2024-06-01 | Outpatient (CLI) | payer OTHER | LOC: M SOG 07:51 | PROVIDERS: ATTEND Physician Assistant | DX: S82.831A Other fracture of upper and lower end of right fibula, initial encounter for closed fracture (principal); M19.071 Primary osteoarthritis, right ankle and foot; Y93.9 Activity, unspecified; Y92.9 Unspecified place or not applicable ==

== ENCOUNTER → 2024-07-02 | Outpatient (CLI) | payer OTHER | LOC: M SOG 07:54 | PROVIDERS: ATTEND Physician Assistant | DX: S82.831D Other fracture of upper and lower end of right fibula, subsequent encounter for closed fracture with routine healing (principal) ==

== ENCOUNTER → 2024-11-06 | Outpatient (REF) | payer OTHER ==
[~2024-11-06] MED LIST changes: +NAPR-1405 PO; -NAPR500T6 PO
[2024-11-06 17:32] LABS: BASO # 0.1 10^3/uL (0.0-0.2); EOS # 0.3 10^3/uL (0.0-0.5); EOS % 4.1 % (0.0-3.0); HEMATOCRIT 46.3 % (42.0-52.0); LYMPH # 2.9 10^3/uL (1.5-5.0); LYMPH % 37.8 % (24.0-44.0); MEAN CORPUSCULAR HEMOGLOBIN 30.7 pg (27.0-33.0); MEAN CORPUSCULAR HGB CONC 34.6 g/dl (32.0-36.5); MEAN CORPUSCULAR VOLUME 88.7 fl (80.0-96.0); MONO # 0.9 10^3/uL (0.0-0.8); MONO % 11.4 % (2.0-8.0); NEUTROPHILS # 3.5 10^3/uL (1.5-8.5); NEUTROPHILS % 45.4 % (36.0-66.0); PLATELET COUNT, AUTOMATED 337 10^3/uL (150-450); RED BLOOD COUNT 5.22 10^6/uL (4.30-6.10); WHITE BLOOD COUNT 7.8 10^3/uL (4.0-10.0)
[2024-11-06 17:44] LABS: ERYTHROCYTE SEDIMENTATION RATE 13 mm/hr (0-15)
[2024-11-06 17:55] LABS: C REACTIVE PROTEIN QUANTITATIV < 0.50 MG/DL (<1.0); CPK CREATINE PHOSPHOKINASE 377 U/L (46-171)
[2024-11-06 17:56] LABS: ALBUMIN 3.8 G/DL (3.2-5.2); ALKALINE PHOSPHATASE 71 U/L (40-129); ALT/SGPT 40 U/L (7.0-40); AST/SGOT 27 U/L (<34); BILIRUBIN,TOTAL 0.8 MG/DL (0.3-1.2); BLOOD UREA NITROGEN 11 MG/DL (9-23); CALCIUM LEVEL 9.5 MG/DL (8.5-10.1); CARBON DIOXIDE LEVEL 26 MMOL/L (20-31); CHLORIDE LEVEL 105 MMOL/L (98-107); CREATININE FOR GFR 0.74 MG/DL (0.70-1.30); GLOMERULAR FILTRATION RATE > 60.0 (>60); GLUCOSE, FASTING 120 MG/DL (60-100); POTASSIUM SERUM 3.8 MMOL/L (3.5-5.1); SODIUM LEVEL 140 MMOL/L (136-145); TOTAL PROTEIN 7.5 G/DL (5.7-8.2)
== END ==
LOC: M LABDRAWC 16:38
PROVIDERS: ATTEND Internal Medicine Rheumatology
DX: M35.9 Systemic involvement of connective tissue, unspecified (principal); M19.90 Unspecified osteoarthritis, unspecified site; R74.8 Abnormal levels of other serum enzymes

== ENCOUNTER → 2025-04-01 | Outpatient (CLI) | payer OTHER ==
[~2025-04-01] MED LIST changes: +AMLO-751 PO; -AMLO10TA PO
[2025-04-01 07:20] LABS: BASO # 0.1 10^3/uL (0.0-0.2); BASO % 0.9 % (0.0-1.0); EOS # 0.3 10^3/uL (0.0-0.5); EOS % 3.8 % (0.0-3.0); HEMATOCRIT 46.9 % (42.0-52.0); HEMOGLOBIN 16.2 g/dl (13.5-17.5); LYMPH # 3.2 10^3/uL (1.5-5.0); LYMPH % 35.8 % (24.0-44.0); MEAN CORPUSCULAR HEMOGLOBIN 30.9 pg (27.0-33.0); MEAN CORPUSCULAR HGB CONC 34.5 g/dl (32.0-36.5); MEAN CORPUSCULAR VOLUME 89.5 fl (80.0-96.0); MONO # 1.2 10^3/uL (0.0-0.8); NEUTROPHILS # 4.1 10^3/uL (1.5-8.5); PLATELET COUNT, AUTOMATED 299 10^3/uL (150-450); RED BLOOD COUNT 5.24 10^6/uL (4.30-6.10); WHITE BLOOD COUNT 8.9 10^3/uL (4.0-10.0)
[2025-04-01 07:38] LABS: ERYTHROCYTE SEDIMENTATION RATE 19 mm/hr (0-15)
[2025-04-01 07:58] LABS: ALKALINE PHOSPHATASE 70 U/L (40-129); ALT/SGPT 42 U/L (7.0-40); AST/SGOT 29 U/L (<34); BILIRUBIN,TOTAL 1.1 MG/DL (0.3-1.2); BLOOD UREA NITROGEN 11 MG/DL (9-23); CALCIUM LEVEL 9.2 MG/DL (8.5-10.1); CARBON DIOXIDE LEVEL 26 MMOL/L (20-31); CHLORIDE LEVEL 107 MMOL/L (98-107); CPK CREATINE PHOSPHOKINASE 539 U/L (46-171); CREATININE FOR GFR 0.79 MG/DL (0.70-1.30); GLOMERULAR FILTRATION RATE > 90.0 (>60); GLUCOSE, FASTING 74 MG/DL (60-100); POTASSIUM SERUM 3.9 MMOL/L (3.5-5.1); SODIUM LEVEL 141 MMOL/L (136-145); TOTAL PROTEIN 7.3 G/DL (5.7-8.2)
[2025-04-01 08:01] LABS: HEPATITIS B SURFACE ANTIBODY POSITIVE (POSITIVE)
[2025-04-01 08:12] LABS: HEPATITIS B SURFACE ANTIGEN NEGATIVE (NEGATIVE)
[2025-04-01 08:33] LABS: HEPATITIS B CORE ANTIBODY IGM NEGATIVE (NEGATIVE); HEPATITIS C VIRUS ABY INDEX 0.04 INDEX (<0.8)
[2025-04-02 13:12] LABS: HEPATITIS B CORE ANTIBODY IGG NON-REACTIVE (NON-REACTIVE)
[2025-04-05 14:28] LABS: QuantiFERON-TB Gold Plus NEGATIVE (NEGATIVE)
== END ==
LOC: M LAB 06:23
PROVIDERS: ATTEND Internal Medicine Rheumatology
DX: R74.8 Abnormal levels of other serum enzymes (principal); M25.50 Pain in unspecified joint; M13.80 Other specified arthritis, unspecified site

== ENCOUNTER → 2025-06-23 | Outpatient (CLI) | payer OTHER | LOC: M PLAIMG 07:01 | PROVIDERS: ATTEND Family Medicine | DX: S73.191A Other sprain of right hip, initial encounter (principal); M71.351 Other bursal cyst, right hip ==

== ENCOUNTER → 2025-07-06 | Outpatient (CLI) | payer OTHER | LOC: M SOG 06:50 | PROVIDERS: ATTEND Orthopaedic Surgery | DX: M25.551 Pain in right hip (principal) ==